=== PATIENT | female | born 1970 | race African-American/Black ===

== ENCOUNTER 2016-10-29 21:40 | Emergency (ER) | payer BC, OTHER ==
[~2016-10-29] VITALS: Ht 160 cm; Wt 77.0 kg
[~2016-10-29 21:40] MED LIST: IOHEXOL-300 100 ML BOTTLE ONE; SODIUM CHLORIDE 0.9% 10ML VIAL ONE
[2016-10-29 23:43] LABS: BASOPHILS % 0.7 % (0.0-2.0); EOSINOPHILS % 2.7 % (0.0-5.0); HEMATOCRIT. 27.4 % (36.0-48.0); HEMOGLOBIN. 8.4 g/dL (12.0-16.0); LYMPHOCYTES % 11.6 % (20.0-50.0); MEAN CORPUSCULAR HEMOGLOBIN 20.8 pg (28.0-32.0); MEAN CORPUSCULAR VOLUME 67.5 fL (81.0-99.0); MEAN PLATELET VOLUME 8.1 fl (7.4-10.4); MONOCYTES % 8.2 % (2.0-8.0); NEUTROPHILS % 76.8 % (40.0-76.0); PLATELET 394 x1000/uL (130-400); RED BLOOD CELL COUNT 4.05 mill/uL (4.2-5.4); RED CELL DISTRIBUTION WIDTH 19.6 % (11.6-14.6)
[2016-10-29 23:48] LABS: CHLORIDE 101 mEq/L (98-107)
[2016-10-29 23:57] LABS: CARBON DIOXIDE 29 mEq/L (21-32)
[2016-10-30 00:16] LABS: CLARITY URINE CLOUDY (CLEAR); COLOR URINE YELLOW (YELLOW); GLUCOSE URINE NEGATIVE (NEGATIVE); KETONES URINE NEGATIVE (NEGATIVE); LEUKOCYTE ESTERASE URINE TRACE (NEGATIVE); NITRITE URINE NEGATIVE (NEGATIVE); OCCULT BLOOD URINE NEGATIVE (NEGATIVE); PH URINE 5.5 (4.5-8.0); PROTEIN URINE 1+ (NEGATIVE); SPECIFIC GRAVITY URINE 1.023 (1.005-1.030)
[2016-10-30 00:52] LABS: PLATELET ESTIMATE NORMAL
[2016-10-30 02:30] VITALS: BP 135/69
[2016-10-30] MEDS ORDERED: METRONIDAZOLE 500MG TABLET PO ONE (02:45)
[2016-10-30] MEDS ORDERED: LEVOFLOXACIN 500MG TABLET PO ONE (02:45)
[2016-11-03] MEDS ORDERED: CIPR-263 PO (00:59)
[2016-11-03] MEDS ORDERED: METR250T PO (00:59)
[2016-11-03] MEDS ORDERED: METR-112 PO (00:59)
[2016-11-03] MEDS ORDERED: OXYC-100 PO (01:01)
== END 2016-10-30 03:10 | disposition home or self-care (01) ==
LOC: ER 21:40
DX: R50.9 Fever, unspecified (principal); Z90.710 Acquired absence of both cervix and uterus; Z88.2 Allergy status to sulfonamides; Z90.49 Acquired absence of other specified parts of digestive tract
CPT/HCPCS: 36415; 74177; 80053; 81001; 83605; 85025; 99285; A4216; Q9967; Z7610

== ENCOUNTER 2020-03-13 05:43 | Emergency (ER) | payer BC, OTHER ==
[~2020-03-13] VITALS: Ht 160 cm; Wt 78.0 kg
[~2020-03-13 05:43] MED LIST changes: +CIPR-263 PO; -IOHEXOL-300 100 ML BOTTLE ONE; +METR-167 PO; +OXYC-100 PO; -SODIUM CHLORIDE 0.9% 10ML VIAL ONE
[2020-03-13] MEDS ORDERED: CLINDAMYCIN HCL 150MG CAPSULE PO STA (06:36)
[2020-03-13 07:39] VITALS: BP 135/98
== END 2020-03-13 07:40 | disposition home or self-care (01) ==
LOC: ER 05:43
DX: R68.84 Jaw pain (principal); K04.7 Periapical abscess without sinus; I10 Essential (primary) hypertension; Z98.890 Other specified postprocedural states; Z90.710 Acquired absence of both cervix and uterus; Z90.49 Acquired absence of other specified parts of digestive tract; Z88.0 Allergy status to penicillin; Z88.2 Allergy status to sulfonamides
CPT/HCPCS: 99283

== ENCOUNTER → 2022-03-14 | Outpatient (CLI) | payer BC | END | disposition home or self-care (01) | LOC: RAD 06:34 | PROVIDERS: ATTEND Radiology Diagnostic Radiology | DX: J18.9 Pneumonia, unspecified organism (principal); R05.9 Cough, unspecified; R06.02 Shortness of breath | CPT/HCPCS: 71045 ==

== ENCOUNTER → 2023-06-18 | Outpatient (CLI) | payer BC ==
[2023-06-18 08:55] LABS: BASOPHILS % 0.4 % (0.0-2.0); EOSINOPHILS % 2.6 % (0.0-5.0); HEMATOCRIT. 40.3 % (36.0-48.0); HEMOGLOBIN. 13.3 g/dL (12.0-16.0); LYMPHOCYTES % 28.3 % (20.0-50.0); MEAN CORPUSCULAR HEMOGLOBIN 27.6 pg (28.0-32.0); MEAN CORPUSCULAR HGB CONC 32.9 g/dL (31.0-37.0); MEAN CORPUSCULAR VOLUME 83.9 fL (81.0-99.0); MEAN PLATELET VOLUME 8.9 fl (7.4-10.4); MONOCYTES % 6.6 % (2.0-8.0); NEUTROPHILS % 62.1 % (40.0-76.0); PLATELET 332 x1000/uL (130-400); RED CELL DISTRIBUTION WIDTH 15.4 % (11.6-14.6); WHITE BLOOD COUNT 8.9 x1000/uL (4.5-11.0)
[2023-06-18 09:27] LABS: ALANINE AMINOTRANSFERASE 22 IU/L (10-49); ALBUMIN 4.5 g/dL (3.2-4.8); ASPARTATE AMINOTRANSFERASE 17 IU/L (<34); BILIRUBIN TOTAL 0.4 mg/dL (0.1-1.0); CALCIUM 9.1 mg/dL (8.7-10.4); CARBON DIOXIDE 28 mEq/L (21-32); CHLORIDE 105 mEq/L (98-107); CHOLESTEROL 131 mg/dL (<200); CREATININE 0.7 mg/dL (0.6-1.0); GLUCOSE 92 mg/dL (70-105); HDL CHOLESTEROL 44 mg/dL (>65); LDL CHOLESTEROL 81 mg/dL (5-100); POTASSIUM 4.3 mEq/L (3.5-5.1); PROTEIN TOTAL 7.9 g/dL (6.0-8.3); SODIUM 138 mEq/L (136-145); TRIGLYCERIDE 104 mg/dL (0-150); UREA NITROGEN BLOOD 10 mg/dL (9-23)
== END | disposition home or self-care (01) ==
LOC: RAD 08:19
PROVIDERS: ATTEND Internal Medicine
DX: I10 Essential (primary) hypertension (principal)
CPT/HCPCS: 36415; 73030; 80053; 80061; 83036; 85025

== ENCOUNTER → 2023-07-03 | Outpatient (CLI) | payer OTHER | END | disposition home or self-care (01) | LOC: MRI 08:26 | PROVIDERS: ATTEND Family Medicine Adult Medicine | DX: M65.811 Other synovitis and tenosynovitis, right shoulder (principal); R60.9 Edema, unspecified; M75.101 Unspecified rotator cuff tear or rupture of right shoulder, not specified as traumatic; M75.51 Bursitis of right shoulder | CPT/HCPCS: 73221 ==

== ENCOUNTER 2024-03-16 23:35 | Emergency (ER) | payer BC, OTHER ==
[~2024-03-16] VITALS: Ht 160 cm; Wt 82.0 kg
[2024-03-16 23:46] VITALS: O2SAT 99
[2024-03-16 23:48] VITALS: BP 158/56; PULSE 80; RESP 16; TEMP 98.4; O2SAT 97
[2024-03-17] MEDS: KETOROLAC 30MG/ML VIAL IM ONE (01:57)
[2024-03-17] MEDS: KETOROLAC 30MG/ML VIAL IM NR (02:38)
[2024-03-17] MEDS ORDERED: AZIT1PAC9 MT (03:42)
[2024-03-17] MEDS ORDERED: AZIT250T12 MT (05:13)
== END 2024-03-17 04:54 | disposition home or self-care (01) ==
LOC: ER 23:35
DX: H61.23 Impacted cerumen, bilateral (principal); I10 Essential (primary) hypertension; Z90.49 Acquired absence of other specified parts of digestive tract; Z90.710 Acquired absence of both cervix and uterus; Z88.0 Allergy status to penicillin; Z88.2 Allergy status to sulfonamides; Z88.5 Allergy status to narcotic agent
CPT/HCPCS: 99285; 70450; 96372; 70480; J1885

== ENCOUNTER → 2025-01-07 | Outpatient (CLI) | payer BC ==
[~2025-01-07] MED LIST changes: +AZIT250T12 MT
[2025-01-07 09:36] LABS: BASOPHILS % 0.5 % (0.0-2.0); EOSINOPHILS % 2.8 % (0.0-5.0); HEMATOCRIT. 40.2 % (36.0-48.0); HEMOGLOBIN. 13.1 g/dL (12.0-16.0); LYMPHOCYTES % 42.2 % (20.0-50.0); MEAN PLATELET VOLUME 8.9 fl (7.4-10.4); MONOCYTES % 7.6 % (2.0-8.0); NEUTROPHILS % 46.9 % (40.0-76.0); PLATELET 289 x1000/uL (130-400); RED BLOOD CELL COUNT 4.82 mill/uL (4.2-5.4); RED CELL DISTRIBUTION WIDTH 14.6 % (11.6-14.6)
[2025-01-07 09:50] LABS: CREATININE 0.8 mg/dL (0.6-1.0); TRIGLYCERIDE 95 mg/dL (0-150); UREA NITROGEN BLOOD 10 mg/dL (9-23)
[2025-01-07 09:51] LABS: LDL CHOLESTEROL 101 mg/dL (5-100)
[2025-01-07 09:52] LABS: ASPARTATE AMINOTRANSFERASE 23 IU/L (<34)
[2025-01-07 09:53] LABS: BILIRUBIN TOTAL 0.4 mg/dL (0.1-1.0); PROTEIN TOTAL 7.9 g/dL (6.0-8.3)
== END | disposition home or self-care (01) ==
LOC: LAB 08:53
PROVIDERS: ATTEND Internal Medicine
DX: I10 Essential (primary) hypertension (principal)
CPT/HCPCS: 36415; 80053; 80061; 83036; 85025